=== PATIENT | female | born 1985 | race African-American/Black ===

== ENCOUNTER 2018-05-24 02:50 | Emergency (ER) | payer OTHER ==
[~2018-05-24] VITALS: Ht 149.9 cm; Wt 77.1 kg
[2018-05-24] MEDS ORDERED: ULTRAM 50MG TAB50 MG PO (04:34)
[2018-05-24] MEDS ORDERED: AMOXICILLIN 50500 M1 PO (04:34)
== END 2018-05-24 04:57 | disposition home or self-care (01) ==
LOC: ER 02:50
DX: M27.3 Alveolitis of jaws (principal); Z88.6 Allergy status to analgesic agent; Z98.890 Other specified postprocedural states